=== PATIENT | female | born 1985 | race Hispanic/Latino ===

== ENCOUNTER 2018-06-23 02:17 | Emergency (ER) | payer OTHER ==
[2018-06-23] MEDS: AUGMENTIN 875 MG TAB PO (03:45)
== END 2018-06-23 03:58 | disposition home or self-care (01) ==
LOC: M ED 02:17
DX: J06.9 Acute upper respiratory infection, unspecified (principal); H66.91 Otitis media, unspecified, right ear; R50.9 Fever, unspecified
CPT/HCPCS: 87880

== ENCOUNTER → 2019-10-22 | Outpatient (REF) | payer OTHER ==
[~2019-10-22] MED LIST: AUGM500T34 PO; DAY1CAP PO
== END ==
LOC: M SFHCLERA 13:44
PROVIDERS: ATTEND Nurse Practitioner Family
DX: R68.89 Other general symptoms and signs (principal)